=== PATIENT | female | born 1945 | race Caucasian/White ===

== ENCOUNTER 2017-03-26 12:03 | Observation (INO) | payer OTHER, MEDICARE ==
[~2017-03-26] VITALS: Ht 165.1 cm; Wt 64.1 kg
[2017-03-26 12:33] LABS: HEMATOCRIT 41.8 % (36.0-46.0); MCH 29.6 PG (29.0-34.0); MCHC 32.1 G/DL (30.0-36.0); MCV 92.3 FL (83-99); MEAN PLAT.VOLUME 10.6 uM^3 (9.5-12.4); PLATELET COUNT 180 K/uL (156-360); RBC DIS.WIDTH-CV 14.6 % (11.8-14.6); RBC DIS.WIDTH-SD 49.6 % (39-53); RED BLOOD COUNT 4.53 M/uL (3.80-5.20); WHITE BLOOD COUNT 6.3 K/uL (4.1-10.2)
[2017-03-26 12:54] LABS: TROP-I INTERPRETATION NEGATIVE; TROPONIN-I < 0.01 ng/mL (0.0-0.30)
[2017-03-26 13:01] LABS: CHLORIDE 105 mEq/L (99-109); POTASSIUM 3.9 mEq/L (3.7-5.4); SODIUM 143 mEq/L (136-147)
[2017-03-26 13:03] LABS: GLUCOSE 98 mg/dL (70-99)
[2017-03-26 13:04] LABS: ANION GAP 14 MEQ/L (2-14)
[2017-03-26 13:07] LABS: GFR ESTIMATE (CALCULATED) > 59 mL/min/
[2017-03-26 13:08] LABS: UREA NITROGEN (BUN) 13 mg/dL (9-23)
[2017-03-26] MEDS ORDERED: LO-DOSE ASPIRIN81 M1 PO (14:12)
[2017-03-26] MEDS ORDERED: ZOCOR10 MG PO (14:12)
[2017-03-26] MEDS ORDERED: CALCIUM 600 MG1 EACH PO (14:13)
[2017-03-26] MEDS ORDERED: DAILY VALUE1 EACH PO (14:13)
[2017-03-26 16:14] VITALS: BP 132/73
[2017-03-26 18:34] LABS: TROP-I INTERPRETATION NEGATIVE; TROPONIN-I < 0.01 ng/mL (0.0-0.30)
[2017-03-26 20:00] VITALS: BP 120/66
[2017-03-27 00:46] VITALS: BP 101/58
[2017-03-27 01:10] LABS: TROP-I INTERPRETATION NEGATIVE; TROPONIN-I < 0.01 ng/mL (0.0-0.30)
[2017-03-27 04:05] VITALS: BP 100/64
[2017-03-27 08:44] VITALS: BP 126/60
== END 2017-03-27 09:36 | disposition home or self-care (01) ==
LOC: EME 12:03 → EDOF 14:21 → 5WEST 14:21 → EDOF 14:21 → ENRESERV 14:24 → 5WEST 16:10
PROVIDERS: Physician Assistant
DX: R07.9 Chest pain, unspecified (principal); R68.84 Jaw pain; E78.5 Hyperlipidemia, unspecified; Z79.82 Long term (current) use of aspirin; Z82.49 Family history of ischemic heart disease and other diseases of the circulatory system
CPT/HCPCS: 71020; 80048; 84484; 85027; 93005; 99281; 99283; G0378

== ENCOUNTER 2018-01-23 13:30 | Emergency (ER) | payer OTHER, MEDICARE ==
[~2018-01-23] VITALS: Ht 165.1 cm; Wt 64.9 kg
[~2018-01-23 13:30] MED LIST: CALCIUM 600 MG1 EACH PO; DAILY VALUE1 EACH PO; LO-DOSE ASPIRIN81 M1 PO; ZOCOR10 MG PO
[2018-01-23 14:35] LABS: HEMATOCRIT 37.1 % (36.0-46.0); HEMOGLOBIN 12.3 G/DL (11.9-15.5); MCH 31.3 PG (29.0-34.0); MCHC 33.2 G/DL (30.0-36.0); MCV 94.4 FL (83-99); PLATELET COUNT 173 K/uL (156-360); RBC DIS.WIDTH-CV 13.9 % (11.8-14.6); RBC DIS.WIDTH-SD 48.8 % (39-53); RED BLOOD COUNT 3.93 M/uL (3.80-5.20); WHITE BLOOD COUNT 4.8 K/uL (4.1-10.2)
[2018-01-23 14:49] LABS: CHLORIDE 107 mEq/L (99-109); SODIUM 142 mEq/L (136-147)
[2018-01-23 14:51] LABS: GLUCOSE 98 mg/dL (70-99)
[2018-01-23 14:55] LABS: CREATININE 0.9 mg/dL (0.6-1.3); GFR ESTIMATE (CALCULATED) > 59 mL/min/
[2018-01-23 14:56] LABS: UREA NITROGEN (BUN) 13 mg/dL (9-23)
[2018-01-23 15:04] LABS: TROP-I INTERPRETATION NEGATIVE; TROPONIN-I < 0.01 ng/mL (0.0-0.30)
[2018-01-23 15:37] VITALS: BP 133/81
== END 2018-01-23 15:38 | disposition left against medical advice (07) ==
LOC: EME 13:30 → RME 13:30
DX: I24.9 Acute ischemic heart disease, unspecified (principal); M41.9 Scoliosis, unspecified; R94.31 Abnormal electrocardiogram [ECG] [EKG]; E78.5 Hyperlipidemia, unspecified; Z79.82 Long term (current) use of aspirin; Z86.79 Personal history of other diseases of the circulatory system
CPT/HCPCS: 71046; 80048; 84484; 85027; 93005; 99281; 99285

== ENCOUNTER 2018-01-24 14:44 | Day surgery (SDC) | payer OTHER, MEDICARE | END 2018-01-24 20:38 | disposition home or self-care (01) | LOC: CATH 14:44 | DX: I34.0 Nonrheumatic mitral (valve) insufficiency (principal); E78.4 Other hyperlipidemia; R07.89 Other chest pain; Z82.49 Family history of ischemic heart disease and other diseases of the circulatory system; Z79.82 Long term (current) use of aspirin | CPT/HCPCS: 85347; C1769; C1887; J1644; J2250; J3010; J7040 ==